=== PATIENT | female | born 1985 | race Caucasian/White ===

== ENCOUNTER 2021-07-12 20:13 | Emergency (ER) | payer MEDICAID ==
[~2021-07-12] VITALS: Ht 165.1 cm; Wt 77.4 kg
[2021-07-12] MEDS ORDERED: ACETAMINOPHEN 500MG TABLET PO ONE (23:15)
[2021-07-12 23:42] LABS: BASOPHILS % 0.4 % (0.0-2.0); HEMATOCRIT. 37.6 % (36.0-48.0); HEMOGLOBIN. 12.5 g/dL (12.0-16.0); LYMPHOCYTES % 31.7 % (20.0-50.0); MEAN CORPUSCULAR HEMOGLOBIN 30.5 pg (28.0-32.0); MONOCYTES % 7.4 % (2.0-8.0); NEUTROPHILS % 59.5 % (40.0-76.0); PLATELET 275 x1000/uL (130-400); RED BLOOD CELL COUNT 4.09 mill/uL (4.2-5.4); RED CELL DISTRIBUTION WIDTH 13.3 % (11.6-14.6)
[2021-07-12 23:43] LABS: CHLORIDE 103 mEq/L (98-107)
[2021-07-13 00:10] LABS: B-HCG QUANTITATIVE 12836 mIU/mL (<3)
[2021-07-13 00:45] LABS: CLARITY URINE CLOUDY (CLEAR); COLOR URINE YELLOW (YELLOW); KETONES URINE TRACE (NEGATIVE); LEUKOCYTE ESTERASE URINE TRACE (NEGATIVE); NITRITE URINE NEGATIVE (NEGATIVE); OCCULT BLOOD URINE 1+ (NEGATIVE); PH URINE 5.5 (4.5-8.0); PROTEIN URINE NEGATIVE (NEGATIVE); SPECIFIC GRAVITY URINE 1.024 (1.005-1.030); UROBILINOGEN URINE 0.2 E.U./dL (0.2-1.0)
[2021-07-13] MEDS ORDERED: CEPH500T MT (01:04)
[2021-07-13 01:15] VITALS: BP 120/84
[2021-07-13] MEDS ORDERED: CEPHALEXIN 250MG CAPSULE PO NR (01:15)
== END 2021-07-13 01:19 | disposition home or self-care (01) ==
LOC: ER 20:13
DX: O23.31 Infections of other parts of urinary tract in pregnancy, first trimester (principal); Z3A.01 Less than 8 weeks gestation of pregnancy; Z98.890 Other specified postprocedural states
CPT/HCPCS: 36415; 76801; 80053; 81003; 81025; 84702; 85025; 99284

== ENCOUNTER 2021-08-16 07:17 | Emergency (ER) | payer MEDICAID ==
[~2021-08-16] VITALS: Ht 165.1 cm; Wt 75.0 kg
[~2021-08-16 07:17] MED LIST: CEPH500T MT
[2021-08-16] MEDS ORDERED: SODIUM CHLORIDE 0.9% 1,000 ML IV ONE (07:45)
[2021-08-16 08:11] LABS: BASOPHILS % 0.6 % (0.0-2.0); EOSINOPHILS % 0.9 % (0.0-5.0); HEMATOCRIT. 35.7 % (36.0-48.0); HEMOGLOBIN. 12.1 g/dL (12.0-16.0); LYMPHOCYTES % 27.4 % (20.0-50.0); MEAN CORPUSCULAR VOLUME 91.5 fL (81.0-99.0); MEAN PLATELET VOLUME 9.5 fl (7.4-10.4); NEUTROPHILS % 65.1 % (40.0-76.0); PLATELET 225 x1000/uL (130-400); RED CELL DISTRIBUTION WIDTH 12.9 % (11.6-14.6)
[2021-08-16 08:18] LABS: CHLORIDE 106 mEq/L (98-107)
[2021-08-16 08:43] LABS: B-HCG QUANTITATIVE 41745 mIU/mL (<3)
[2021-08-16 12:00] VITALS: BP 109/55
== END 2021-08-16 12:29 | disposition home or self-care (01) ==
LOC: ER 07:17
DX: O20.0 Threatened abortion (principal); Z3A.11 11 weeks gestation of pregnancy; Z98.890 Other specified postprocedural states
CPT/HCPCS: 36415; 76801; 76817; 80053; 84702; 85025; 86850; 86900; 86901; 99284; J7030

== ENCOUNTER 2021-08-18 01:52 | Emergency (ER) | payer MEDICAID ==
[~2021-08-18] VITALS: Ht 165.1 cm; Wt 75.0 kg
[2021-08-18 01:59] VITALS: BP 114/83
[2021-08-18 02:40] LABS: BASOPHILS % 0.5 % (0.0-2.0); EOSINOPHILS % 0.7 % (0.0-5.0); HEMATOCRIT. 37.4 % (36.0-48.0); HEMOGLOBIN. 12.6 g/dL (12.0-16.0); LYMPHOCYTES % 31.1 % (20.0-50.0); MEAN CORPUSCULAR HEMOGLOBIN 30.9 pg (28.0-32.0); MEAN PLATELET VOLUME 9.8 fl (7.4-10.4); MONOCYTES % 5.9 % (2.0-8.0); NEUTROPHILS % 61.8 % (40.0-76.0); PLATELET 244 x1000/uL (130-400); RED BLOOD CELL COUNT 4.07 mill/uL (4.2-5.4)
[2021-08-18 02:44] LABS: CHLORIDE 107 mEq/L (98-107)
[2021-08-18 03:23] LABS: B-HCG QUANTITATIVE 46180 mIU/mL (<3)
== END 2021-08-18 03:43 | disposition home or self-care (01) ==
LOC: ER 01:52
DX: O20.8 Other hemorrhage in early pregnancy (principal); Z3A.11 11 weeks gestation of pregnancy; Z98.890 Other specified postprocedural states
CPT/HCPCS: 36415; 76801; 80053; 81025; 84702; 85025; 86850; 86900; 99284

== ENCOUNTER 2023-06-09 10:46 | Emergency (ER) | payer MEDICAID ==
[~2023-06-09] VITALS: Ht 165.1 cm; Wt 72.7 kg
[~2023-06-09 10:46] MED LIST changes: +FERR-71 MT; +PNV1TABL76 MT
[2023-06-09 10:55] VITALS: O2SAT 99
[2023-06-09 11:24] LABS: BASOPHILS % 0.9 % (0.0-2.0); EOSINOPHILS % 1.1 % (0.0-5.0); HEMATOCRIT. 37.9 % (36.0-48.0); HEMOGLOBIN. 12.7 g/dL (12.0-16.0); LYMPHOCYTES % 39.4 % (20.0-50.0); MEAN CORPUSCULAR HEMOGLOBIN 29.4 pg (28.0-32.0); MEAN CORPUSCULAR HGB CONC 33.5 g/dL (31.0-37.0); MEAN CORPUSCULAR VOLUME 87.9 fL (81.0-99.0); MEAN PLATELET VOLUME 8.8 fl (7.4-10.4); MONOCYTES % 9.4 % (2.0-8.0); NEUTROPHILS % 49.2 % (40.0-76.0); PLATELET 260 x1000/uL (130-400); RED BLOOD CELL COUNT 4.31 mill/uL (4.2-5.4); RED CELL DISTRIBUTION WIDTH 15.2 % (11.6-14.6); WHITE BLOOD COUNT 4.6 x1000/uL (4.5-11.0)
[2023-06-09 11:34] LABS: CHLORIDE 109 mEq/L (98-107); INDEX HEMOLYSI 1 (1-3); INDEX ICTERIC 1 (1-4); INDEX LIPEMIC 1 (1-3); POTASSIUM 3.6 mEq/L (3.5-5.1); SODIUM 135 mEq/L (136-145)
[2023-06-09 11:41] LABS: ALANINE AMINOTRANSFERASE 19 IU/L (13-61); ALBUMIN 3.7 g/dL (3.4-5.0); ASPARTATE AMINOTRANSFERASE 13 IU/L (15-37); BILIRUBIN TOTAL 0.3 mg/dL (0.1-1.0); CALCIUM 8.2 mg/dL (8.5-10.1); CARBON DIOXIDE 27 mEq/L (21-32); CREATININE 0.6 mg/dL (0.6-1.3); GLUCOSE 100 mg/dL (70-105); PROTEIN TOTAL 7.6 g/dL (6.0-8.3); UREA NITROGEN BLOOD 12 mg/dL (7-21)
[2023-06-09] MEDS ORDERED: METOCLOPRAMIDE HCL 10MG/2ML VIAL IV ONE (12:15)
[2023-06-09] MEDS ORDERED: DIPHENHYDRAMINE 50MG/ML VIAL IV ONE (12:15)
[2023-06-09] MEDS ORDERED: KETOROLAC 30MG/ML VIAL IV ONE (12:15)
[2023-06-09] MEDS ORDERED: METOCLOPRAMIDE HCL 10MG TABLET PO ONE (12:30)
[2023-06-09] MEDS ORDERED: ACETAMINOPHEN 325MG TABLET PO ONE (12:30)
[2023-06-09 13:15] LABS: CLARITY URINE CLEAR (CLEAR); COLOR URINE YELLOW (YELLOW); GLUCOSE URINE NEGATIVE (NEGATIVE); KETONES URINE NEGATIVE (NEGATIVE); LEUKOCYTE ESTERASE URINE NEGATIVE (NEGATIVE); NITRITE URINE NEGATIVE (NEGATIVE); OCCULT BLOOD URINE 1+ (NEGATIVE); PH URINE 6.5 (4.5-8.0); PROTEIN URINE NEGATIVE (NEGATIVE); SPECIFIC GRAVITY URINE 1.021 (1.005-1.030); UROBILINOGEN URINE 0.2 E.U./dL (0.2-1.0)
[2023-06-09 13:23] LABS: BACTERIA URINE 1+; RBC URINE 15-25 /hpf (0-2); SQUAMOUS EPITHELIAL CELL URINE 1+ /lpf (RARE/1+); WBC URINE 0-2 /hpf (0-2); YEAST URINE NONE SEEN
[2023-06-09] MEDS ORDERED: IBUP-2029 MT (15:24)
[2023-06-09] MEDS ORDERED: NAPR-1176 MT (15:46)
[2023-06-09 15:51] VITALS: BP 112/68; PULSE 68; RESP 18; TEMP 98
== END 2023-06-09 15:54 | disposition home or self-care (01) ==
LOC: ER 10:46
DX: R51.9 Headache, unspecified (principal)
CPT/HCPCS: 99284; 70450; 80053; 81003; 85025; 36415; J8597

== ENCOUNTER 2023-10-23 18:23 | Emergency (ER) | payer OTHER ==
[~2023-10-23] VITALS: Ht 167.6 cm; Wt 75.0 kg
[~2023-10-23 18:23] MED LIST changes: +NAPR-1176 MT
[2023-10-23 18:33] VITALS: O2SAT 100
[2023-10-23] MEDS ORDERED: KETOROLAC 30MG/ML VIAL IV ONE (20:00)
[2023-10-23] MEDS ORDERED: ONDANSETRON HCL 4MG/2ML INJ IV ONE (20:00)
[2023-10-23] MEDS ORDERED: SODIUM CHLORIDE 0.9% 1,000 ML IV ONE (20:00)
[2023-10-23] MEDS ORDERED: MORPHINE SULFATE 2 MG/ML CPJ (NOT FOR IM USE) IV ONE (20:00)
[2023-10-23 20:24] LABS: BASOPHILS % 0.7 % (0.0-2.0); EOSINOPHILS % 2.9 % (0.0-5.0); HEMATOCRIT. 35.4 % (36.0-48.0); HEMOGLOBIN. 11.3 g/dL (12.0-16.0); LYMPHOCYTES % 34.5 % (20.0-50.0); MEAN CORPUSCULAR HEMOGLOBIN 28.8 pg (28.0-32.0); MEAN CORPUSCULAR HGB CONC 31.9 g/dL (31.0-37.0); MEAN CORPUSCULAR VOLUME 90.1 fL (81.0-99.0); MEAN PLATELET VOLUME 9.2 fl (7.4-10.4); MONOCYTES % 8.1 % (2.0-8.0); NEUTROPHILS % 53.8 % (40.0-76.0); PLATELET 302 x1000/uL (130-400); RED BLOOD CELL COUNT 3.92 mill/uL (4.2-5.4); RED CELL DISTRIBUTION WIDTH 15.4 % (11.6-14.6); WHITE BLOOD COUNT 8.6 x1000/uL (4.5-11.0)
[2023-10-23 20:37] LABS: ALANINE AMINOTRANSFERASE 10 IU/L (10-49); ALBUMIN 4.3 g/dL (3.2-4.8); ASPARTATE AMINOTRANSFERASE 13 IU/L (<34); BILIRUBIN TOTAL 0.2 mg/dL (0.1-1.0); CARBON DIOXIDE 30 mEq/L (21-32); CHLORIDE 105 mEq/L (98-107); CREATINE KINASE 86 IU/L (34-145); CREATININE 0.6 mg/dL (0.6-1.0); GLUCOSE 97 mg/dL (70-105); PHOSPHORUS 3.4 mg/dL (2.5-4.9); POTASSIUM 3.6 mEq/L (3.5-5.1); PROTEIN TOTAL 7.6 g/dL (6.0-8.3); SODIUM 139 mEq/L (136-145); UREA NITROGEN BLOOD 9 mg/dL (9-23)
[2023-10-23 21:03] LABS: ERYTHROCYTE SEDIMENTATION RATE 14 mm/hr (0-20)
[2023-10-23] MEDS ORDERED: MORPHINE SULFATE 2 MG/ML CPJ (NOT FOR IM USE) IV NR (22:00)
[2023-10-23] MEDS ORDERED: ONDANSETRON HCL 4MG/2ML INJ IV NR (22:00)
[2023-10-23] MEDS ORDERED: KETOROLAC 30MG/ML VIAL IV NR (22:00)
[2023-10-23] MEDS ORDERED: MORPHINE SULFATE 4 MG/ML CPJ (NOT FOR IM USE) IV ONE (23:00)
[2023-10-23] MEDS ORDERED: METOCLOPRAMIDE HCL 10MG/2ML VIAL IV ONE (23:00)
[2023-10-24 06:29] VITALS: BP 120/70; PULSE 60; RESP 16; TEMP 98.1
== END 2023-10-24 06:36 | disposition short-term general hospital (02) ==
LOC: ER 18:23
DX: R11.2 Nausea with vomiting, unspecified (principal); M79.601 Pain in right arm; Z98.890 Other specified postprocedural states
CPT/HCPCS: 99284; 96374; 96375; 96361; 80053; 82550; 83735; 84100; 85025; 85651; 87040; 36415; 73060; J1885; J2405; J2270; J7030